=== PATIENT | male | born 1925 | race Caucasian/White ===

== ENCOUNTER 2016-05-08 11:39 | Emergency (ER) | payer MEDICARE, OTHER ==
[~2016-05-08] VITALS: Ht 165.1 cm; Wt 67.0 kg
[2016-05-08 11:39] VITALS: BP 144/69; PULSE 82; RESP 20; O2SAT 95
--- NOTE | 2016-05-08 11:45 | ED.REPORT ---
HPI-Trauma Minor / Fall Date of Service May 08, 2016 ED Provider: Mihai Lott MD The patient is an 89 year old male who was brought to the emergency department by EMS after he had a ground level fall prior to arrival. The patient was out on a walk when he lost his balance and fell forward. He was able to ambulate after the fall. He has a laceration to his upper lip and a missing front tooth. The patient mentions right hip pain but this was present prior to the fall. His hip pain is normally improved with his daily walks. At this time his only complaint is his tooth. He denies loss of consciousness, neck pain, abdominal pain, chest pain, dizziness, lightheadedness or shortness of breath. He takes 81 mg aspirin daily. He is not on any other blood thinners. His tetanus is up to date. Nursing Notes Stated Complaint: GLF, HIP PAIN Chief Complaint: Multiple Trauma/Fall Nursing Notes Reviewed: Yes Allergies: Coded Allergies: codeine (Verified Allergy, Unknown, Unknown, 05/08/16) General Time Seen by MD: 11:40 Chief Complaint Fall, Face injury, Extremity pain Hx Obtained From: Patient, EMS Arrived By: Ambulance Onset Occurred: Just prior to arrival Symptom Duration: Since onset Caused by: Accidental, Fall on ground Location: Hip right Mouth Quality: Painful Severity: Current: Moderate Severity: Maximum: Moderate Context: Immunizations Tetanus up to date Recent Healthcare: No recent doctor visit, No recent hospitalization Similar Sx Previous: No Past Medical History Past Medical History High cholesterol Past Surgical History Valve replacement Family History Noncontributory Smoking History Unknown if Ever Smoker Social History Lives independently at [facility]. Other Social History: Good social support, Lives alone, Local resident Ambulatory Status Independent Review of Systems Review of Systems Note: +facial injury Ears / Nose / Throat: Reports: Mouth pain Respiratory: Denies: Shortness of breath Musculoskeletal: Reports: Joint pain, Denies: Neck pain Neurologic: Denies: Change LOC, Dizziness, Headache, Lightheaded, Syncope Complete sys rev & neg: except as marked. Cardiovascular: Denies: Chest pain GI: Denies: Abdominal pain Physical Exam Initial Vital Signs Vital Signs (First) Date Time Temp Pulse Resp B/P Pulse Ox O2 Delivery O2 Flow Rate FiO2 05/08/16 11:39 36.8 82 20 144/69 95 Room Air Initial VS: Reviewed Respiratory: Breath sounds normal, Clear to auscultation, No respiratory distress Cardiovascular: Regular rate & rhythm, Heart sounds normal, Intact distal pulses Abdomen / GI: Soft, Non-tender, No guarding, No rebound, No distention Lymphatic: No lymphadenopathy Extremities: Vascular intact, Neuro intact, No swelling, No tenderness Skin: Warm, Dry, No cyanosis Neurologic: Alert, Oriented, Nonfocal Psychiatric: Mood/affect normal, Behavior normal, Normal thought content General/Constitutional: Awake, Alert, Cooperative Neck: Atraumatic, Supple, Full range of motion, No swelling, Non-tender, No midline vertebral tend, No masses Head / Eyes: Atraumatic, Normocephalic, PERRL, EOMI ENT: Airway patent Dental / Gums: Positive: Tooth fracture There is a 1 cm laceration to his upper lip on the right side into the vermilion border, no involvement of the oral mucosa. Back: Full range of motion, No midline vertebral tend Positive SLR on the right at 45 degrees. Lower Extremity / Pelvis / MS: Atraumatic, Inspection NL, Full range of motion , No swelling, No deformity, Neurologic intact, Vascular intact Right hip is nontender with full range of motion. Procedures Laceration Management Laceration Management: [place] border was reapproximated well. Procedure Performed by: ED physician Consent / Setup / Site Prep: Consent from patient, Time-out performed, Hand hygiene observed Location of Wound: right upper lip over the vermilion border Wound Length: 1 cm Local Anesthesia: Lidocaine w epi 1%, 2cc Digital Block: No Wound Preparation: Betadine, Normal saline Debridement: None Irrigation: Copious Foreign Body Explore / Removal: Explored for foreign body Undermining / Margins: Flaps aligned Repair Skin: ___ O (6-0 plain gut) # Sutures - Skin: 4 Closure Layers: 1 Suture Technique: Simple Post-Procedure / Complications: Dressing applied, No complications, Condition improved, Tolerated procedure well, Patient stable Re-Eval/Medical Decision Med Decision/Clinical Course 89-year-old male presenting status post mechanical ground-level fall while hiking fell onto her anterior lip with lip laceration. Denies any other head trauma or loss of consciousness. No anticoagulants. He does report some chronic right hip pain which radiates down the back of his right leg. He takes Aleve for this. His hips are full range of motion without any tenderness therefore do not suspect hip fracture. I sutured his lip laceration as above with 4 plain gut sutures. Suture care provided. Follow-up primary doctor in 3 days for wound check. Return precautions given if any sign symptoms infection or bleeding or poor wound healing. Source of Hx: Old records, EMS Re-Evaluation/Progress : Time of Eval: 13:12 Re-Evaluation/Progress Note: Discussed plan for discharge. Counseled Regarding: Diagnosis, Need for follow-up, When/why to return to ED Discharge & Departure Impression: Primary Impression: Fall from ground level Additional Impressions: Tooth avulsion Encounter type: initial encounter Qualified Code: S03.2XXA - Dislocation of tooth, initial encounter Lip laceration Encounter type: initial encounter Qualified Code: S01.511A - Laceration without foreign body of lip, initial encounter Disposition: Home Discharge Condition All VS Reviewed: Yes Condition: Stable Patient Instructions: Laceration (ED) Additional Instructions: Thank you for entrusting us with your care today. The sutures that were placed today are dissolvable so you don't need these taken out. Followup with your regular doctor on Thursday for a wound check. Your tetanus is up to date therefore we did not give you one today. Seek care for any sign of infection, redness, swelling, discharge, increased pain, bleeding that is not easily controlled with pressure, or any other new or concerning symptoms. Referrals: Shivani Payne MD (PCP) Scribe Attestation Portions of this note were transcribed by Jhoana Colon. I, Dr. Lott personally performed the history, physical exam and medical decision-making; I reviewed and confirmed the accuracy of the information in the transcribed note. Signed by: Dorian Maguire, 05/08/2016 at 1316. copies to: Shivani Payne MD, Ben M MD May 08, 2016 11:45 Jhoana Colon May 08, 2016 11:46
[2016-05-08] MEDS ORDERED: Lidocaine 1%-Epi 1:100,000 50 mL Inj SUBQ ONE (12:25)
[2016-05-08] MEDS ORDERED: Lidocaine 1%-Epi 1:100,000 20 mL Inj ONE (12:34)
[2016-05-08 13:13] VITALS: BP 141/62; PULSE 65; RESP 19; O2SAT 96
== END 2016-05-08 13:34 | disposition home or self-care (01) ==
LOC: SED 11:39
DX: S03.2XXA Dislocation of tooth, initial encounter (principal); S01.511A Laceration without foreign body of lip, initial encounter; W18.30XA Fall on same level, unspecified, initial encounter; Y92.9 Unspecified place or not applicable; Y93.01 Activity, walking, marching and hiking; Y99.8 Other external cause status; M25.551 Pain in right hip; G89.29 Other chronic pain; E78.5 Hyperlipidemia, unspecified; Z95.4 Presence of other heart-valve replacement; Z79.82 Long term (current) use of aspirin; Z88.5 Allergy status to narcotic agent